=== PATIENT | female | born 1980 | race American Indian/Alaskan Native ===

== ENCOUNTER 2021-10-17 07:01 | Emergency (ER) | payer BC, MEDICAID ==
--- NOTE | 2021-10-17 08:22 | Emergency Department Report ---
ED Laceration HPI - HPI Chief Complaint: Extremity Injury, Lower Stated Complaint: CUT THE BOTTOM OF FEET Time Seen by Provider: 10/17/21 08:09 Occurred When: Today Location: Lower Extremity Severity: mild Tetanus Status: Up to Date Laceration Symptoms: No Foreign Body Sensation, No Numbness, No Weakness, No Pain Other History: 41 yo obese AA female stepped on a broken bowl this am and has superficial laceration to bottom of right foot. No bleeding. tdap utd. she is diabetic. ED Review of Systems ROS: Stated complaint: CUT THE BOTTOM OF FEET Other details as noted in HPI Comment: All other systems reviewed and negative ED Past Medical Hx - Past Medical History Previous Medical History?: Yes Hx Hypertension: Yes Hx Diabetes: Yes Additional medical history: lumbar disc disease, arthiritis - Surgical History Past Surgical History?: Yes Additional Surgical History: hysterectomy, c section, hernia repair - Family History Family history: no significant - Social History Smoking Status: Never Smoker Substance Use Type: None - Medications Home Medications: Home Medications Medication Instructions Recorded Confirmed Last Taken Type Amoxicillin [Trimox CAP] 500 mg PO BID #20 capsule 10/17/21 Unknown Rx Laceration Physical Exam - Exam General: Vital signs noted. No distress. Alert and acting appropriately. Laceration Location: Lower Extremity Laceration Exam: Yes Normal Distal CMS, No Foreign Body, No Exposed Tendon, Vessel, or Nerve, No Tendon Injury ED Medical Decision Making - Medical Decision Making vs normal as documented manually by healthcare economics consultant provided tdap utd educated on wound are will start on amox given her DM and distal wound in obese woman she verbalizes understanding of wound care dc home with dc plan of care- she understands wound care/ meds/ follow up. Ambulatory on d/c in nad - Differential Diagnosis simple lac Critical care attestation.: If time is entered above; I have spent that time in minutes in the direct care of this critically ill patient, excluding procedure time. ED Disposition Clinical Impression: Superficial laceration, History of diabetes mellitus Obese Qualifiers: Obesity type: due to excess calories Disposition: 01 HOME / SELF CARE / HOMELESS Is pt being admited?: No Does the pt Need Aspirin: No Condition: Stable Instructions: Laceration Care, Adult Additional Instructions: motrin or tylenol for pain keep wound clean ice/rest/elevete med as ordered today until gone follow up with pcp next week to be sure you are healing Prescriptions: Amoxicillin [Trimox CAP] 500 mg PO BID #20 capsule Referrals: TRACEY HOLDEN MD [Staff Physician] - 3-5 Days Time of Disposition: 08:20
[2021-10-17 08:50] VITALS: BP 137/95
== END 2021-10-17 08:50 | disposition home or self-care (01) ==
LOC: ED 07:01
DX: S91.311A Laceration without foreign body, right foot, initial encounter (principal); I10 Essential (primary) hypertension; E11.9 Type 2 diabetes mellitus without complications; E66.9 Obesity, unspecified; Z68.45 Body mass index [BMI] 70 or greater, adult; Z98.890 Other specified postprocedural states; X58.XXXA Exposure to other specified factors, initial encounter; Y93.89 Activity, other specified; Y92.89 Other specified places as the place of occurrence of the external cause; Y99.8 Other external cause status
CPT/HCPCS: 99282